=== PATIENT | male | born 1970 | race Caucasian/White ===

== ENCOUNTER 2017-01-15 11:25 | Emergency (ER) | payer SELFPAY ==
[2017-01-15 11:30] VITALS: TEMP 97.7
--- NOTE | 2017-01-15 11:51 | CPEKG ---
Heart Rate: 84 RR Interval: 714 P-R Interval: 156 QRSD Interval: 102 QT Interval: 376 QTC Interval: 445 P [place]: 58 QRS [place]: 18 T Wave [place]: 16 EKG Severity - ABNORMAL ECG - EKG Impression: SINUS RHYTHM EKG Impression: LEFT ATRIAL ABNORMALITY Electronically Signed By: Roya Cedillo 15-Jan-2017 15:06:29
--- NOTE | 2017-01-15 12:02 | EDPHY ---
H & P Smoking Status: Never smoked Time Seen by Provider: 01/15/17 11:45 HPI/ROS: CHIEF COMPLAINT: Chest pain, shortness of breath HISTORY OF PRESENT ILLNESS: 46-year-old male with a history of anxiety presents with chest pain and shortness of breath. Last evening, he drank an excessive amount of alcohol. When he awoke this morning, he did not feel right. He felt somewhat short of breath when walking up the stairs. He then began to feel anxious and at 9:30am, he developed a vague discomfort in the left side of his chest. The chest sensation feels like pressure and is moderate. No prior similar symptoms. No nausea, vomiting, abdominal pain. Cardiac risk factors negative. Nonsmoker; no family history; no hypertension, diabetes or hypercholesterolemia. REVIEW OF SYSTEMS: Constitutional: No fever, no recent illness Eyes: No visual changes ENT: No sore throat Respiratory: No cough Gastrointestinal: No nausea, no vomiting, no abdominal pain Genitourinary: no dysuria Musculoskeletal: No leg pain or swelling Skin: No rash Neurological: No headache, no weakness Psychiatric: Anxiety (Roya Cedillo) Past Medical/Surgical History: Anxiety (Roya Cedillo) Social History: Recent alcohol (Roya Cedillo) Physical Exam: General Appearance: Alert, pleasant Eyes: Pupils equal and round, no conjunctival pallor ENT, Mouth: Mucous membranes moist Neck: Normal inspection Respiratory: left-sided chest wall tenderness, lungs are clear to auscultation Cardiovascular: Regular rate and rhythm, no murmur Gastrointestinal: Abdomen is soft and nontender Neurological: A&O, nonfocal, normal gait Skin: Warm and dry, no rash Extremities: Nontender, no pedal edema Psychiatric: Anxious (Roya Cedillo) Constitutional: Initial Vital Signs Temperature (C) 36.5 C 01/15/17 11:26 Heart Rate 69 01/15/17 11:26 Respiratory Rate 18 01/15/17 11:26 Blood Pressure 159/102 H 01/15/17 11:26 O2 Sat (%) 100 01/15/17 11:26 O2 Delivery Mode Room Air Allergies/Adverse Reactions: No Known Allergies Allergy (Verified 01/15/17 11:30) Home Medications: Medication Instructions Recorded NK [No Known Home Meds] 01/15/17 Medical Decision Making - Diagnostics EKG Interpretation: EKG interpreted by me reveals normal sinus rhythm, rate 84, no ST or T segment changes. Impression: normal EKG. (Roya Cedillo) ED Course/Re-evaluation: 1500: The patient is signed out to me at change of shift by Dr. Cedillo. The patient is awaiting a repeat troponin. I discussed the plan with Dr. Cedillo. The patient's troponin is negative he is to be discharged home. I went personally evaluated the patient. The patient states "I am feeling great. "He denies any chest pain or shortness of breath. General Appearance: Alert and no distress. Head: Pupils equal. Normal. Respiratory: No respiratory distress. Clear to auscultation bilaterally Cardiac: regular rate and rhythm. No rubs murmurs gallops Extremities: Full range of motion, normal appearing. Skin: No rashes or lesions. Neuro: Alert. Normal mood and affect. I discussed the patient's laboratory studies. I answered all his questions. I discussed coronary disease. Repeat troponin: Negative I discussed results with the patient. I answered all his questions. No chest pain. Time of discharge she was chest pain-free. He is given warnings prior to leaving. (Kylie Zamora) This patient presents with chest pain and shortness of breath. Stat EKG reveals no evidence of ischemia or dysrhythmia. He has a family history of heart disease, which is his only cardiac risk factor. No prior cardiac testing. D-dimer is slightly elevated. Giving symptoms that could be consistent with a pulmonary embolism, CT pulmonary angiogram ordered. The patient was informed about this testing and agrees. 1:30 p.m.-CT scan results discussed with the patient. He is asymptomatic, except for some anxiety. He is aware that he has a pulmonary nodule and will follow up with Pulmonary. He also has LAD calcification. Given this, combined with chest pain this morning, I will repeat a 4 hr troponin. If the troponin is normal, I feel that he can safely be discharged home. He will need outpatient cardiac testing within [address] him on an aspirin daily. Aspirin 324 mg orally given. Ativan 1 mg IV given for anxiety. (Roya Cedillo) Differential Diagnosis: Differential diagnosis includes though it is not limited to pneumonia, pneumothorax, pulmonary embolism, aortic dissection, pericarditis, acute coronary syndrome. (Roya Cedillo) - Data Points Laboratory Results: Laboratory Results 01/15/17 11:55 01/15/17 11:55 Medications Given: Discontinued Medications Aspirin (Aspirin) 324 mg PO EDNOW ONE Stop: 01/15/17 13:45 Last Admin: 01/15/17 13:52 Dose: 324 mg Lorazepam (Ativan Injection) 1 mg IVP EDNOW ONE Stop: 01/15/17 13:45 Last Admin: 01/15/17 13:52 Dose: 1 mg Departure - Departure Disposition: Home, Routine, Self-Care Clinical Impression: Chest pain Condition: Good Instructions: Chest Pain (ED) Additional Instructions: You have a right lower lobe pulmonary nodule. You will need to follow up with a logging worker to further evaluate this finding. Return for recurrent pain, any concerns. Take an aspirin daily. Referrals: Von Travis MD [Medical Doctor] - As per Instructions (Call to make an appointment with Dr. Travis. He has a logging worker.) Quang Hadley MD [Medical Doctor] - 2-3 days, call for appt. (Call to make an appointment with Dr. Hadley. 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
[2017-01-15 12:04] LABS: % IMMATURE GRANULYOCYTES 0.3 % (0.0-1.1); ABSOLUTE IMMATURE GRANULOCYTES 0.02 10^3/uL (0.00-0.10); ADD DIFF? NO; ADD MORPH? NO; ADD SCAN? NO; ATYPICAL LYMPHOCYTE FLAG 0 (0-99); FRAGMENT RBC FLAG 0 (0-99); HEMATOCRIT 46.4 % (40.0-51.0); HEMOGLOBIN 16.9 g/dL (13.7-17.5); LEFT SHIFT FLG 0 (0-99); LIPEMIA HEMOLYSIS FLAG 90 (0-99); MEAN CELL HEMOGLOBIN 34.3 pg (27.9-34.1); MEAN CELL HEMOGLOBIN CONCENTR. 36.4 g/dL (32.4-36.7); MEAN CELL VOLUME 94.3 fL (81.5-99.8); MEAN PLATELET VOLUME 9.2 fL (8.7-11.7); PLATELET CLUMPS FLAG 0 (0-99); PLATELET COUNT 261 10^3/uL (150-400); RED BLOOD CELL COUNT 4.92 10^6/uL (4.40-6.38); RED CELL DISTRIBUTION WIDTH 11.7 % (11.5-15.2)
[2017-01-15 12:19] LABS: ANION GAP 14 mEq/L (8-16); CALCIUM 9.8 mg/dL (8.5-10.4); CARBON DIOXIDE 28 mEq/l (22-31); CHLORIDE 100 mEq/L (97-110); CREATININE 0.9 mg/dL (0.7-1.3); GLOMERULAR FILTRATION RATE > 60; GLUCOSE 112 mg/dL (70-100); POTASSIUM 3.9 mEq/L (3.5-5.2); SODIUM 142 mEq/L (134-144)
[2017-01-15 12:30] LABS: TROPONIN I < 0.012 ng/mL (0.000-0.034)
[2017-01-15] MEDS ORDERED: IOPAMIDOL (ISOVUE 370) 100 ML BTL IV ONE (12:44)
[2017-01-15 13:34] VITALS: RESP 16; O2SAT 95
[2017-01-15] MEDS ORDERED: LORazepam 2 MG/ML INJ IVP ONE (13:44)
[2017-01-15] MEDS ORDERED: ASPIRIN 81 MG CHEWABLE TAB PO ONE (13:44)
[2017-01-15 17:31] VITALS: BP 155/122; PULSE 72
== END 2017-01-15 17:29 | disposition home or self-care (01) ==
DX: R07.9 Chest pain, unspecified (principal)
CPT/HCPCS: 96374; J2060; Q9967

== ENCOUNTER → 2017-11-29 | Outpatient (CLI) | payer OTHER | LOC: FIMAGING 13:26 | PROVIDERS: ATTEND Internal Medicine Critical Care Medicine | DX: R91.1 Solitary pulmonary nodule (principal) ==